=== PATIENT | male | born 1940 | race Caucasian/White ===

== ENCOUNTER 2021-04-18 11:34 | Outpatient (CLI) | payer MEDICARE, OTHER, SELFPAY ==
--- NOTE | 2021-04-18 11:48 | ECG_ITS ---
Measurements Intervals [place] Rate: 46 P: 91 NM: 200 QRS: -41 QRSD: 106 T: 8 QT: 447 QTc: 391 Interpretive Statements SINUS BRADYCARDIA LEFT AXIS DEVIATION INCOMPLETE RIGHT BUNDLE BRANCH BLOCK BORDERLINE ST-T WAVE ABNORMALITY- INFERIOR LEADS BASELINE ARTIFACT- II, III ABNORMAL ECG Electronically Signed On 04-18-2021 15:32:28 CDT by Johnathon García D.O.
== END 2021-04-18 11:35 | disposition home or self-care (01) ==
LOC: ANHIMG 11:38 → ANHCARD 11:56
PROVIDERS: PCP Family Medicine; Visit Provider Nurse Practitioner Family
DX: D47.2 Monoclonal gammopathy (principal); R00.1 Bradycardia, unspecified; I45.10 Unspecified right bundle-branch block
CPT/HCPCS: 93005

== ENCOUNTER 2021-05-06 14:29 | Outpatient (CLI) | payer MEDICARE, OTHER, SELFPAY ==
--- NOTE | ~2021-05-06 | US_ITS ---
EXAMINATION: US carotid duplex BI DATE: 05/06/2021 15:07 INDICATION: Dizziness and giddiness. TECHNIQUE: Grayscale, color Doppler, and pulsed Doppler images of the cervical carotid arteries were obtained. The degree of vessel stenosis is placed in one of the following categories: normal, <50%, 5 0-69%, >=70% but less than near-occlusion, near-occlusion, or total occlusion. Note that percent sten osis relative to normal distal artery lumen diameter is indirectly measured from velocity measurement s as described by Noah, et al. Radiology 2003; 229:340-346. COMPARISON: None. FINDINGS: RIGHT: The right common carotid artery (CCA) peak systolic velocity (PSV) is 65 cm/s. The right internal car otid artery (ICA) PSV is 43 cm/s. The right ICA end-diastolic velocity (EDV) is 12 cm/s. The right IC A/CCA PSV ratio is 0.7. Grayscale and color Doppler images yield an estimate of <50% diameter reducti on from plaque in the ICA. There is antegrade flow in the right vertebral artery. LEFT: The left CCA PSV is 56 cm/s. The left ICA PSV is 41 cm/s. The left ICA EDV is 15 cm/s. The left ICA/C CA PSV ratio is 0.7. Grayscale and color Doppler images yield an estimate of <50% diameter reduction from plaque in the ICA. There is antegrade flow in the left vertebral artery. IMPRESSION: 1. <50% stenosis in the right internal carotid artery. 2. <50% stenosis in the left internal carotid artery. Reviewed, dictated and finalized at location B.
== END 2021-05-06 14:30 | disposition home or self-care (01) ==
LOC: ANHIMG 14:33
PROVIDERS: PCP Family Medicine; Visit Provider Nurse Practitioner Family
DX: E78.2 Mixed hyperlipidemia (principal); R42 Dizziness and giddiness; I65.23 Occlusion and stenosis of bilateral carotid arteries
CPT/HCPCS: 93880

== ENCOUNTER 2021-05-07 09:33 | Outpatient (CLI) | payer MEDICARE, OTHER, SELFPAY ==
--- NOTE | 2021-05-07 09:54 | ECHO_ITS ---
Patient Info Name: Tay Mccoy Age: 80 years : 1940 Gender: Male Ht: 68 in Wt: 173 lbs BSA: 1.95 m2 HR: 58 bpm BP: 160 / 96 mmHg Heart Rhythm: Bradycardia Technical Quality: Good Exam Date: 05/07/2021 10:16 AM Exam Location: [facility] Patient Status: Outpatient Admit Date: 05/07/2021 Staff Ordering Physician: Flaquita Henderson NP Abstract Checker: Elyse Jerry RDCS Attending Provider: Flaquita Henderson NP Referring Physician: Santiago REY; Exam Type: CA echo doppler color flow Study Info Indications R94.31 - Abnormal electrocardiogram ECG EKG Complete two-dimensional, color flow and Doppler transthoracic echocardiogram is performed. Summary 1. Complete two-dimensional, color flow and Doppler transthoracic echocardiogram is performed. 2. Left ventricular chamber size and systolic function are normal with no regional wall motion abnormalities with an estimated ejection fraction of 65-70%. Mild concentric left ventricular hypertrophy. Grade 2 diastolic dysfunction is present. 3. Left atrial chamber dimension is severely enlarged. 4. Right atrial chamber dimension is mildly enlarged. 5. There is mild mitral valve regurgitation. 6. No pulmonary hypertension, estimated pulmonary arterial systolic pressure is 27 mmHg. 7. The prox ascending aorta size is borderline dilated, 3.8 cm. 8. Sinus bradycardia. Left Ventricle Left ventricular chamber dimension is normal. Left ventricular systolic function is normal, estimated at 65-70%. There is mildly increased left ventricular wall thickness. Left ventricular septal wall motion is normal. The left ventricular diastolic function is grade II diastolic dysfunction. Left ventricular chamber size and systolic function are normal with no regional wall motion abnormalities with an estimated ejection fraction of 65-70%. Mild concentric left ventricular hypertrophy. Grade 2 diastolic dysfunction is present. Right Ventricle Right ventricular chamber dimension is normal. Right ventricular systolic function is normal. Left Atria Left atrial chamber dimension is severely enlarged. Right Atria Right atrial chamber dimension is mildly enlarged. Aortic Valve The aortic valve is trileaflet. There is no aortic valve sclerosis. There is no aortic valve stenosis. There is no aortic valve regurgitation. Pulmonic Valve The pulmonic valve is normal. There is no pulmonic valve stenosis. There is trace pulmonic regurgitation. Mitral Valve The mitral valve has normal leaflets. There is no mitral valve stenosis. There is mild mitral valve regurgitation. Tricuspid Valve The tricuspid valve leaflets are normal. There is no significant tricuspid valve stenosis. There is trace tricuspid valve regurgitation. No pulmonary hypertension, estimated pulmonary arterial systolic pressure is 27 mmHg. Pericardium/Pleural The pericardium appears normal. There is no pericardial effusion. Inferior Vena Cava Normal inferior vena cava with >50% collapse upon inspiration consistent with normal right atrial pressure, 10 mmHg. Aorta The aortic root size at the sinus of Valsalva is normal. The prox ascending aorta size is borderline dilated, 3.8 cm. Left Ventricular Outflow Tract Name Value Normal LVOT 2D ----
--- NOTE | 2021-05-07 11:09 | EST_ITS ---
Patient Info Name: Tay Mccoy Age: 80 years : 1940 Gender: Male Ht: 68 in Wt: 173 lbs BSA: 1.95 m2 HR: 45 bpm BP: 142 / 98 mmHg Technical Quality: Excellent Exam Date: 05/07/2021 11:24 AM Exam Location: [facility] Patient Status: Outpatient Admit Date: 05/07/2021 Staff Ordering Physician: Flaquita Henderson NP Attending Provider: Flaquita Henderson NP Exercise Technologist: Sharita Pires CT Exercise Physician: Jacinto Dent MD Exam Type: CA stress test treadmill Study Info Indications R94.31 - Abnormal electrocardiogram ECG EKG An exercise stress test was performed. Summary 1. The patient exercised for 7 minutes of the Guy protocol, reaching a heart rate of 99 beats per minute which was 70% of predicted maximal heart rate. His heart rate response was blunted as he had continued to take his carvedilol. 2. Hypertensive blood pressure response, reaching 225/101 mmHg. 3. Inconclusive treadmill stress test for ischemia secondary to low heart rate achieved. 4. No evidence of ischemia at this level of exercise. Protocol: Guy Stress ECG Details Stage: REST Duration (min): 0 min : 11 sec Speed (mph): 0.0 Grade (%): 0 HR (bpm): --- SBP (mmHg): --- DBP (mmHg): --- METS: --- Stage: REST Duration (min): 2 min : 1 sec Speed (mph): 0.0 Grade (%): 0 HR (bpm): 46 SBP (mmHg): 142 DBP (mmHg): 98 METS: --- Stage: REST Duration (min): 6 min : 5 sec Speed (mph): 0.0 Grade (%): 0 HR (bpm): 49 SBP (mmHg): 142 DBP (mmHg): 98 METS: --- Stage: STAGE 1 Duration (min): 1 min : 0 sec Speed (mph): 1.7 Grade (%): 10 HR (bpm): 65 SBP (mmHg): 142 DBP (mmHg): 98 METS: --- Stage: STAGE 1 Duration (min): 2 min : 0 sec Speed (mph): 1.7 Grade (%): 10 HR (bpm): 72 SBP (mmHg): 142 DBP (mmHg): 98 METS: --- Stage: STAGE 1 Duration (min): 3 min : 0 sec Speed (mph): 1.7 Grade (%): 10 HR (bpm): 76 SBP (mmHg): 183 DBP (mmHg): 91 METS: --- Stage: STAGE 2 Duration (min): 1 min : 0 sec Speed (mph): 2.5 Grade (%): 12 HR (bpm): 80 SBP (mmHg): 183 DBP (mmHg): 91 METS: --- Stage: STAGE 2 Duration (min): 2 min : 0 sec Speed (mph): 2.5 Grade (%): 12 HR (bpm): 86 SBP (mmHg): 183 DBP (mmHg): 91 METS: --- Stage: STAGE 2 Duration (min): 3 min : 0 sec Speed (mph): 2.5 Grade (%): 12 HR (bpm): 89 SBP (mmHg): 189 DBP (mmHg): 93 METS: --- Stage: STAGE 3 Duration (min): 1 min : 0 sec Speed (mph): 3.4 Grade (%): 14 HR (bpm): 98 SBP (mmHg): 190 DBP (mmHg): 91 METS: --- Stage: STAGE 3 Duration (min): 1 min : 0 sec Speed (mph): 3.4 Grade (%): 14 HR (bpm): 98 SBP (mmHg): 190 DBP (mmHg): 91 METS: --- Stage: RECOVERY Duration (min): 0 min : 59 sec Speed (mph): 0.0 Grade (%):
== END 2021-05-07 09:34 | disposition home or self-care (01) ==
PROVIDERS: PCP Family Medicine; Visit Provider Nurse Practitioner Family
DX: R94.31 Abnormal electrocardiogram [ECG] [EKG] (principal); R00.1 Bradycardia, unspecified; I51.7 Cardiomegaly
CPT/HCPCS: 93017; 93306

== ENCOUNTER 2022-06-01 10:40 | Outpatient (CLI) | payer MEDICARE, OTHER, SELFPAY ==
--- NOTE | ~2022-06-01 | US_ITS ---
EXAMINATION: US venous doppler [facility] DATE: 06/01/2022 11:51 INDICATION: Lower limb pain and swelling TECHNIQUE: [place] scale images without and with compression and Doppler images of the bilateral lower e xtremity veins were obtained. COMPARISON: None FINDINGS: The right common femoral vein, profunda femoral vein, femoral vein, popliteal vein, peroneal trunk, p osterior tibial veins, and greater saphenous vein are patent. The left common femoral vein, profunda femoral vein, femoral vein, popliteal vein, peroneal trunk, po sterior tibial veins, and greater saphenous vein are patent. IMPRESSION: 1. Patent bilateral lower extremity veins. No evidence of deep venous thrombosis. Reviewed, dictated and finalized at location B. IMPRESSION: 1. Patent bilateral lower extremity veins. No evidence of deep venous thrombosi s.
--- NOTE | ~2022-06-01 | XR_ITS ---
EXAMINATION: XR tibia fibula RT 2V INDICATION: Right leg pain TECHNIQUE: Two views of the right tibia and fibula are obtained on three radiographs COMPARISON: 01/20/2016 FINDINGS: Bone alignment is normal. There is no fracture. 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 Posterior and plantar calcaneal enthesophytes are noted. IMPRESSION: 1. No acute osseous abnormality. Reviewed, dictated and finalized at location B.
== END 2022-06-01 10:41 | disposition home or self-care (01) ==
PROVIDERS: PCP Family Medicine; Visit Provider Nurse Practitioner Family
DX: M79.604 Pain in right leg (principal); M79.89 Other specified soft tissue disorders
CPT/HCPCS: 73590; 93970